=== PATIENT | female | born 1975 | race Two or more races ===

== ENCOUNTER 2018-03-08 14:36 | Emergency (ER) | payer BC, MEDICAID ==
[~2018-03-08] VITALS: Ht 165.1 cm; Wt 68.0 kg
[2018-03-08 14:50] VITALS: BP 122/77
[2018-03-08] MEDS ORDERED: IBUPROFEN 800 MG TAB PO ONE (16:30)
== END 2018-03-08 16:37 | disposition home or self-care (01) ==
LOC: EDBD 14:36 → EDUNIT# 14:36 → ER 14:36
DX: S80.11XA Contusion of right lower leg, initial encounter (principal); W22.8XXA Striking against or struck by other objects, initial encounter; Y93.89 Activity, other specified; Y99.8 Other external cause status; Y92.59 Other trade areas as the place of occurrence of the external cause
CPT/HCPCS: 73590; 99283; J7030